=== PATIENT | female | born 1980 | race Caucasian/White ===

== ENCOUNTER 2018-09-13 20:54 | Emergency (ER) | payer MEDICAID, OTHER ==
[2018-09-14 01:18] LABS: ADD MAN DIFF? NO
[2018-09-14 01:20] LABS: WHITE BLOOD COUNT 11.2 10^3/ul (4.8-10.8)
[2018-09-14 01:20] LABS: BASOPHILS % 0.4 % (0.0-2.0); EOSINOPHILS # 0.1 10^3/ul (0.0-0.5); EOSINOPHILS % 1.2 % (0.0-7.0); HEMOGLOBIN 14.1 g/dl (12.0-16.0); LYMPHOCYTES # 2.6 10^3/ul (0.8-2.9); LYMPHOCYTES % 22.7 % (15.0-51.0); MEAN CORPUSCULAR HEMOGLOBIN 31.1 pg (29.0-33.0); MEAN CORPUSCULAR HGB CONC 33.6 g/dl (32.0-37.0); MEAN CORPUSCULAR VOLUME 92.7 fl (82.0-101.0); MEAN PLATELET VOLUME 9.3 fl (7.4-10.4); MONOCYTE # 0.8 10^3/ul (0.3-0.9); MONOCYTES % 6.7 % (0.0-11.0); NEUTROPHIL # 7.7 10^3/ul (1.6-7.5); NEUTROPHILS % 68.5 % (39.0-77.0); PLATELET COUNT 277 10^3/UL (140-415); RED BLOOD COUNT 4.53 10^6/ul (4.20-5.40)
[2018-09-14] MEDS: LORAZEPAM 2 MG INJ IV (01:20)
[2018-09-14] MEDS: SOD CHLORIDE 0.9% 500 ML IV (01:21)
[2018-09-14 01:43] LABS: ANION GAP 13 (5-13); Estimated GFR > 60 mL/min (>60)
[2018-09-14 01:53] LABS: BLOOD UREA NITROGEN 13 mg/dl (7-20); CALCIUM 9.3 mg/dl (8.4-10.2); CARBON DIOXIDE 22 mmol/L (21-31); CHLORIDE 106 mmol/L (97-110); CREATININE 0.68 mg/dl (0.44-1.00); GLUCOSE 115 mg/dl (70-220); POTASSIUM 4.2 mmol/L (3.5-5.1); SODIUM 141 mmol/L (135-144)
[2018-09-14 01:54] LABS: TROPONIN-I < 0.012 ng/ml (0.000-0.120)
[2018-09-14 02:12] LABS: B-TYPE NATRIURETIC PEPTIDE 55 PG/ML (0-125)
== END 2018-09-14 03:00 | disposition home or self-care (01) ==
LOC: E/R 20:54
DX: F41.1 Generalized anxiety disorder (principal); R07.9 Chest pain, unspecified; J45.909 Unspecified asthma, uncomplicated
CPT/HCPCS: 36415; 71045; 80048; 81025; 83880; 84484; 85025; 93005; 96374; 99285-25